=== PATIENT | female | born 1965 | race Caucasian/White ===

== ENCOUNTER 2022-10-04 11:19 | Emergency (ER) | payer OTHER ==
[~2022-10-04] VITALS: Ht 160 cm; Wt 68.0 kg
[2022-10-04 11:29] VITALS: BP 208/136
[2022-10-04] MEDS ORDERED: ONDA4ODT MM (12:09)
== END 2022-10-04 12:49 | disposition home or self-care (01) ==
LOC: ER 11:19
DX: R11.2 Nausea with vomiting, unspecified (principal); R94.2 Abnormal results of pulmonary function studies; Z88.0 Allergy status to penicillin
CPT/HCPCS: 99282; A9270

== ENCOUNTER 2023-01-12 19:39 | Emergency (ER) | payer OTHER ==
[~2023-01-12] VITALS: Ht 160 cm; Wt 72.6 kg
[~2023-01-12 19:39] MED LIST: ONDA4ODT MM
[2023-01-12] MEDS ORDERED: Amlodipine Bes2.5 MG PO (19:59)
[2023-01-12] MEDS ORDERED: LISI20 PO (20:00)
[2023-01-12 22:48] LABS: BASOPHILS ABSOLUTE AUTO 0.06 K/mm3 (0.00-0.23); BASOPHILS PERCENT AUTO 1 % (0-2); EOSINOPHILS ABSOLUTE AUTO 0.42 K/mm3 (0.00-0.68); EOSINOPHILS PERCENT AUTO 5 % (0-6); Hematocrit 43.2 % (33.0-51.0); Hemoglobin 14.8 g/dL (11.5-16.0); IMMATURE GRAN ABSOLUTE AUTO 0.02 K/mm3 (0.00-0.10); IMMATURE GRAN PERCENT AUTO 0 % (0-1); LYMPHOCYTES PERCENT AUTO 23 % (21-46); MONOCYTES PERCENT AUTO 8 % (4-13); Mean Corpuscular HGB 28.6 pg (26.0-34.0); Mean Corpuscular HGB Conc 34.3 g/dL (31.5-36.5); Mean Corpuscular Volume 84 fL (80-100); Mean Platelet Volume 9.4 fL (9.1-12.4); NEUTROPHILS ABSOLUTE AUTO 5.74 K/mm3 (1.96-9.15); NEUTROPHILS PERCENT AUTO 64 % (41-73); Platelet Count 263 K/mm3 (150-400); RDW Coefficient Variation 13.3 % (11.7-14.2); RDW Standard Deviation 40.6 fL (35.1-46.3); Red Blood Cell Count 5.17 M/mm3 (3.80-5.20); White Blood Cell Count 9.04 K/mm3 (4.00-11.30)
[2023-01-12 23:15] LABS: Bun/Creatinine Ratio 20.9 (12.0-20.0); Calcium, Blood 8.9 mg/dL (8.5-10.1); Creatinine, Blood 0.91 mg/dL (0.40-1.00); Magnesium, Blood 2.3 mg/dL (1.6-2.4); Potassium, Blood 3.8 mmol/L (3.5-5.5); Thyroid Stimulating Hormone 1.82 uIU/mL (0.360-4.800)
[2023-01-12 23:20] VITALS: BP 155/103
[2023-01-12] MEDS ORDERED: Norvasc5 MG PO (23:20)
== END 2023-01-12 23:27 | disposition home or self-care (01) ==
LOC: ER 19:39
PROVIDERS: Emergency Medicine
DX: I10 Essential (primary) hypertension (principal); N95.1 Menopausal and female climacteric states; Z88.0 Allergy status to penicillin; Z79.899 Other long term (current) drug therapy
CPT/HCPCS: 80048; 83735; 84443; 85025; 99283; A9270